=== PATIENT | male | born 1960 | race Caucasian/White ===

== ENCOUNTER 2019-01-19 18:03 | Emergency (ER) | payer MEDICAID ==
[~2019-01-19] VITALS: Ht 188 cm; Wt 96.0 kg
[2019-01-19 18:20] VITALS: BP 132/76
== END 2019-01-19 21:21 | disposition home or self-care (01) ==
LOC: ER 18:04
DX: R04.0 Epistaxis (principal); Z88.8 Allergy status to other drugs, medicaments and biological substances
CPT/HCPCS: 99281

== ENCOUNTER 2020-10-01 15:41 | Emergency (ER) | payer MEDICARE, MEDICAID ==
[~2020-10-01] VITALS: Ht 188 cm; Wt 89.5 kg
[~2020-10-01 15:41] MED LIST: AMA100C PO; ARIP30TA7 PO; DIVA500T9 PO; QUET300T2 PO
[2020-10-01 16:40] VITALS: BP 153/83
[2020-10-01] MEDS ORDERED: METF-438 PO (17:33)
[2020-10-01] MEDS ORDERED: LUMA42CA PO (17:33)
[2020-10-01] MEDS ORDERED: CARI4.5C PO (17:33)
[2020-10-01] MEDS ORDERED: LEVO88TA7 PO (17:33)
[2020-10-01 17:40] LABS: BASOPHILS % (AUTO) 0.4 % (0-1); EOSINOPHILS # (AUTO) 0.1 X10'3 (0-0.9); EOSINOPHILS % (AUTO) 0.9 % (0-6); HEMATOCRIT 38.9 % (42.0-52.0); HEMOGLOBIN 12.8 g/dl (14.0-17.9); LYMPHOCYTES # (AUTO) 0.7 X10'3 (1.1-4.8); LYMPHOCYTES % (AUTO) 10.8 % (21-51); MEAN CORPUSCULAR HEMOGLOBIN 28.8 PG (27.0-31.0); MEAN CORPUSCULAR VOLUME 87.2 FL (78-98); MEAN PLATELET VOLUME 8.2 FL (7.4-10.4); MONOCYTES # (AUTO) 0.6 X10'3 (0-0.9); MONOCYTES % (AUTO) 8.9 % (2-12); NEUTROPHILS # (AUTO) 5.1 X10'3 (1.8-7.7); PLATELET COUNT 220 X10'3 (140-440); RED BLOOD COUNT 4.46 X10'6 (4.70-6.10); RED CELL DISTRIBUTION WIDTH 14.7 % (11.5-14.5); WHITE BLOOD COUNT 6.5 X10'3 (4.5-11.0)
[2020-10-01 17:53] LABS: ALANINE AMINOTRANSFERASE 20 U/L (12-78); ALBUMIN 3.4 G/DL (3.4-5.0); ALBUMIN/GLOBULIN RATIO 0.9 (1.1-1.5); ALKALINE PHOSPHATASE 87 IU/L (46-116); ANION GAP 8 (8-16); ASPARTATE AMINO TRANSFERASE 17 U/L (10-37); BILIRUBIN,TOTAL 0.4 MG/DL (0.1-1.0); BLOOD UREA NITROGEN 16 MG/DL (7-18); BUN/CREATININE RATIO 13.4 (5.4-32.0); CHLORIDE 108 MMOL/L (99-107); CREATININE 1.19 MG/DL (0.60-1.10); GLUCOSE 111 MG/DL (70-104); POTASSIUM 4.1 MMOL/L (3.5-5.1); SODIUM 143 MMOL/L (135-145); TOTAL CARBON DIOXIDE 27.1 MMOL/L (24-32); TOTAL PROTEIN 7.1 G/DL (6.4-8.2); eGFR 63 ML/MIN
[2020-10-01 18:05] LABS: ETHANOL < 0.010 GM/DL (0.0-0.010)
[2020-10-01 18:55] LABS: CLARITY,URINE CLEAR (Clear); COLOR,URINE YELLOW (Yellow); GLUCOSE, URINE NEGATIVE (Neg); KETONES,URINE NEGATIVE (Neg); LEUKOCYTE ESTERASE ,URINE NEGATIVE (Neg); NITRITES, URINE NEGATIVE (Neg); OCCULT BLOOD,URINE NEGATIVE (Neg); PROTEIN,URINE NEGATIVE (Neg); UROBILINOGEN,URINE 0.2 E.U/dL (0.2-1.0)
[2020-10-01 18:56] LABS: UA COLLECTION TYPE CLN CATCH MIDSTREAM; URINE AMPHETAMINE SCREEN NEGATIVE (Neg); URINE BARBITUATE SCREEN NEGATIVE (Neg); URINE BENZODIAZEPINES SCREEN NEGATIVE (Neg); URINE CANNABINOID SCREEN NEGATIVE (Neg); URINE COCAINE SCREEN NEGATIVE (Neg); URINE METHADONE SCREEN NEGATIVE (Neg); URINE OPIATE SCREEN NEGATIVE (Neg); URINE PHENCYCLIDINE SCREEN NEGATIVE (Neg)
[2020-10-01] MEDS: LORazepam 1 MG tablet PO PRN (19:33)
--- NOTE | 2020-10-01 19:38 | NUR ---
Pt brought back to room. Pt stated, "I wish I had a sexy outfits for these ladies back here". Pt redirected.
--- NOTE | 2020-10-01 20:00 | NUR ---
Pt removed his clothing. Security called to help redirect and new orders obtained.
[2020-10-01] MEDS ORDERED: LORazepam 2 mg/ml vial IM ONE (20:20)
[2020-10-01] MEDS ORDERED: haloperidol lactate 5mg/ml inj IM ONE (20:20)
[2020-10-01] MEDS ORDERED: diphenhydrAMINE 50 mg/ml inj IM ONE (20:20)
--- NOTE | 2020-10-01 20:30 | NUR ---
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 I'm being honest". Pt redirected.
--- NOTE | 2020-10-01 20:35 | NUR ---
Pt stated not to put b52 in his hip because he was aroused. B52 given in deltoids.
--- NOTE | 2020-10-01 20:55 | NUR ---
Pt resting quietly, respirations normal, no s/s of distress.
--- NOTE | 2020-10-01 22:00 | NUR ---
Pt resting quietly, respirations normal, no s/s of distress.
--- NOTE | 2020-10-01 23:45 | NUR ---
Pt resting quietly, respirations normal, no s/s of distress.
--- NOTE | 2020-10-02 01:26 | NUR ---
Pt resting quietly, respirations normal, no s/s of distress.
--- NOTE | 2020-10-02 02:35 | NUR ---
Pt awake and up to use restroom. On way back to bed, pt enter areas of two female patients. Pt redirected back to bed.
[2020-10-02] MEDS ORDERED: haloperidol lactate 5mg/ml inj IM ONE (02:50)
--- NOTE | 2020-10-02 02:50 | NUR ---
Pt requested assistance with bed covers. Due to pt's previous behavior, security called for assistance.
--- NOTE | 2020-10-02 02:50 | NUR ---
Pt argumentative with security, requesting to be "pepper-sprayed". Pt posturing up in bed, non-directable. Pt demanding to "walk around the hospital". New orders obtained.
[2020-10-02] MEDS: LORazepam 1 MG tablet PO PRN ×2 (02:55→08:21)
--- NOTE | 2020-10-02 04:09 | NUR ---
Pt resting quietly, respirations normal, no s/s of distress.
[2020-10-02] MEDS ORDERED: METFORMIN HCL 1000 MG PO SCH ×2 (07:30→08:21)
[2020-10-02] MEDS ORDERED: Lumateperone Tosylate (Caplyta) 42MG CAP PO SCH (08:00)
[2020-10-02] MEDS ORDERED: CARIPRAZINE 1.5 MG CAPSULE PO SCH (08:00)
--- NOTE | 2020-10-02 08:10 | NUR ---
PT STOOD UP PANICKING STATES, I HAVE TO PEE, I HAVE TO PEE. PT WAS DIRECTED TO BR, VOIDED X1.
--- NOTE | 2020-10-02 08:35 | NUR ---
PT TALKATIVE, AND CONTINUES TO ASK FOR A RADIO THAT SOMEONE HAD PROMISED HIM IF HE WERE TO STAY QUIET. LOOKING FOR A RADIO FOR HIM. PT REQUESTED ATIVAN TO KEEP HIM CALM. ATIVAN 1 MG GIVEN PO
--- NOTE | 2020-10-02 09:01 | NUR ---
breakfast was served before metformin due. metformin not given.
--- NOTE | 2020-10-02 09:02 | NUR ---
PT CONTINUES TO ASK FOR STREET CLOTHES. PT ALSO ASKING TO CALL HIS CAREGIVER. PHONE PROVIDED. RADIO COULD NOT BE LOCATED. T.Cierra PROVIDED ANDPT
--- NOTE | 2020-10-02 09:58 | NUR ---
EDGAR FROM [place] OFFICE CALLED, PT IS ACCEPTED TO [facility] AND WILL BE GOING UP SOMETIME THIS AM.
--- NOTE | 2020-10-02 14:14 | NUR ---
PT TALKING CONSTANTLY AND HYPER. INFORMED DR. BLANCAS. PLEASE SEE NEW ORDERS.
[2020-10-02] MEDS ORDERED: MIDAZolam 1mg/ml 10ml vial IM ONE (14:15)
[2020-10-02] MEDS ORDERED: MIDAZolam 5mg/ml 2ml vial IM ONE (14:20)
== END 2020-10-02 15:08 ==
LOC: ER 15:42
DX: F22 Delusional disorders (principal); F20.9 Schizophrenia, unspecified; Z20.828 Contact with and (suspected) exposure to other viral communicable diseases; Z60.2 Problems related to living alone; Z88.8 Allergy status to other drugs, medicaments and biological substances; Z79.899 Other long term (current) drug therapy
CPT/HCPCS: 96372; 99285; J1200; J1630; J2060; 36415; 80053; 80305; 80320; 81003; 84443; 85025; 87635; C9803

== ENCOUNTER 2022-03-02 21:35 | Inpatient (IN) | payer MEDICARE, MEDICAID ==
[~2022-03-02] VITALS: Ht 188 cm; Wt 102.0 kg
[~2022-03-02 21:35] MED LIST changes: -AMA100C PO; -ARIP30TA7 PO; +BENZ2TAB70 PO; -DIVA500T9 PO; +DOCU-340 PO; +LEVO100C4 PO; +METF-438 PO; +OLAN20TA3 PO; +PANT40TA54 PO; -QUET300T2 PO
[2022-03-03] MEDS ORDERED: magnesium hydroxide 30ml (MOM) UD suspension PO PRN (13:10)
[2022-03-03] MEDS ORDERED: mag hydrox/Alum hydrox/simeth 30ml oral suspension PO PRN (13:10)
[2022-03-03] MEDS ORDERED: magnesium Cl slow-release 64mg tablet PO PRN (13:10)
[2022-03-03] MEDS ORDERED: POTASSIUM BICARB 20meq eff tab 20 MEQ TABLET.EFF PO PRN ×2 (13:10)
[2022-03-03] MEDS ORDERED: loperamide 2mg capsule PO PRN (13:10)
[2022-03-03] MEDS ORDERED: acetaminophen 325mg tablet PO PRN ×2 (13:10)
[2022-03-03 13:49] VITALS: BP 147/72
[2022-03-03] MEDS ORDERED: iohexol 300mg/ml 100ml inj. ONE (16:38)
[2022-03-03] MEDS ORDERED: metFORMIN 500mg tablet PO SCH (17:00)
--- NOTE | 2022-03-03 17:11 | NUR ---
Admit note: Pt admitted on 03/02/22 from PCU on a 5150 for [place] disabled. Pt is unable to formulate plan for food, clothing, intermediate, despite intensive outpatient mental health services and support. Pt has history of Schizoaffective disorder.
--- NOTE | 2022-03-03 18:00 | NUR ---
Nursing Progress Note Legal hold: 5150 Client on involuntary status for GD Report received from RN with use of SBAR Why are they here: Pt admitted on 03/02/22 from PCU on a 5150 for [place] disabled. Pt is unable to formulate plan for food, clothing, detention, despite intensive outpatient mental health services and support. Pt has history of Schizoaffective disorder. Assessment What has happened this shift: Received Pt in bed sleeping w/o distress at shift change. Pt woke and was cooperative with vitals. Pt incontinent of urine and Pt and bed changed. Pt is confused and unsteady on his feet. He needs much prompting for all tasks. Pt up to wheel chair and ate breakfast in community room. Pt incontinent of urine throughout day. Hospitalists paged throughout the day by charge nurse. When they responded and info shared, ordered CT of abdomen and chest which was completed in late afternoon. Pt napped on/off for most of the day. Pts breathing is labored at times and speech is mumbled. Metformin DCd due to contrast media. Pts BS in AM was 186, befor dinner was 208. Pt was readmitted and new admission completed. S/I, H/I: Pt denies A/VH: Pt denies Sleep: Pt napped on/off all day ADL's; With assistance Group attendance: Yes/ end of AM group Were meds taken: Yes Any med S/E: None noted Mental Status Exam Appearance: In unit scrubs Eye contact: Good Behavior: Lethargic/confused Speech: Mostly mumbling and inaudible with moments of clear sentences Mood: Anxious Affect: tired, sedated Thought process: Confused Thought Content: Delusional statements Cognition: A/O X 3 Insight: Poor Judgment: Poor Interventions PRN's used: None Therapeutic interventions: 1:1 assessment, therapeutic conversation, active listening, medication administration/education/monitoring, fall prevention, encouragement of autonomy in ADLs, assistance with transfers, ambulation, toileting, incontinent care, and showers. Encouragement to attend groups, reality orientation and positive reinforcement. Restraints/seclusion/emergency medication: None Justification of Continued Inpatient Treatment: Pt continues to require a safe and therapeutic environment with medication management and monitoring.
--- NOTE | 2022-03-03 18:31 | NUR ---
TRANSFER TO TELE: Spoke with Dr. Jara regarding client status at 18:35. ordered client to be transferred to U. Notified KATHIE Blanchard to assign bed. PHIL Gerardo aware of transfer. Client to be transferred on [facility] with all belongings. Client informed of transfer. Addendum: 03/03/22 at 5599 by Randee Thrasher RN Client assigned to [id number]. Client is a LOS. NA to stay with client for duration of shift.
[2022-03-03] MEDS ORDERED: docusate sod 100mg capsule PO SCH (20:00)
[2022-03-03] MEDS ORDERED: OLANZapine 2.5MG tablet PO SCH (21:00)
[2022-03-04] MEDS ORDERED: levoTHYROXINE 100mcg tablet PO SCH (07:00)
[2022-03-04] MEDS ORDERED: pantoprazole 40mg Tablet.DR PO SCH (07:30)
[2022-03-04] MEDS ORDERED: MESSAGE TO PHARMACY PO SCH (10:00)
== END 2022-03-03 23:32 | disposition short-term general hospital (02) | DRG 885 ==
LOC: ADULT MH 21:35 → UNDODISIN 03-03 13:19
PROVIDERS: ADMIT Psychiatry & Neurology Psychiatry; ATTEND Psychiatry & Neurology Psychiatry
PROC: BW251ZZ Computerized Tomography (CT Scan) of Chest, Abdomen and Pelvis using Low Osmolar Contrast (ICD-10-PCS; principal; 2022-03-03)
DX: F25.9 Schizoaffective disorder, unspecified (principal); I26.99 Other pulmonary embolism without acute cor pulmonale; D64.9 Anemia, unspecified; E11.9 Type 2 diabetes mellitus without complications; K21.9 Gastro-esophageal reflux disease without esophagitis; R11.10 Vomiting, unspecified; Z79.84 Long term (current) use of oral hypoglycemic drugs; Z56.0 Unemployment, unspecified
CPT/HCPCS: 36415; 71260; 74177; 80178; 82948; Q9967

== ENCOUNTER 2023-03-07 11:22 | Emergency (ER) | payer MEDICARE, MEDICAID ==
[~2023-03-07] VITALS: Ht 188 cm; Wt 90.0 kg
[~2023-03-07 11:22] MED LIST changes: +APIX5TAB3 PO; +BENZ1TAB78 PO; -BENZ2TAB70 PO; -DOCU-340 PO; +DOCU100C40 PO; +FLO0.4C PO; -LEVO100C4 PO; +LEVO100T9 PO; +OLAN10TA73 PO; -OLAN20TA3 PO; +PANT-47 PO; -PANT40TA54 PO; +POTA-207 PO
[2023-03-07 11:55] LABS: BASOPHILS % (AUTO) 0.4 % (0-1); EOSINOPHILS # (AUTO) 0.1 X10'3 (0-0.9); EOSINOPHILS % (AUTO) 0.8 % (0-6); LYMPHOCYTES # (AUTO) 0.4 X10'3 (1.1-4.8); LYMPHOCYTES % (AUTO) 4.5 % (21-51); MEAN CORPUSCULAR HGB CONC 29.9 g/dL (33.0-36.5); MEAN PLATELET VOLUME 7.8 FL (7.4-10.4); MONOCYTES # (AUTO) 0.8 X10'3 (0-0.9); MONOCYTES % (AUTO) 7.6 % (2-12); NEUTROPHILS # (AUTO) 8.6 X10'3 (1.8-7.7); NEUTROPHILS % (AUTO) 86.7 % (42-75); PLATELET COUNT 299 X10'3 (140-440)
[2023-03-07 12:08] LABS: ALANINE AMINOTRANSFERASE 15 U/L (12-78); ALBUMIN 3.1 G/DL (3.4-5.0); ALBUMIN/GLOBULIN RATIO 0.8 (1.1-1.5); ALKALINE PHOSPHATASE 132 IU/L (46-116); ANION GAP 14 (8-16); ASPARTATE AMINO TRANSFERASE 11 U/L (10-37); BILIRUBIN,TOTAL 0.1 MG/DL (0.1-1.0); BLOOD UREA NITROGEN 18 MG/DL (7-18); BUN/CREATININE RATIO 8.9 (10.0-20.0); CALCIUM 8.9 MG/DL (8.5-10.1); CHLORIDE 107 MMOL/L (99-107); CREATININE 2.02 MG/DL (0.60-1.10); GLUCOSE 193 MG/DL (70-104); POTASSIUM 4.3 MMOL/L (3.5-5.1); SODIUM 143 MMOL/L (135-145); TOTAL PROTEIN 7.1 G/DL (6.4-8.2); eGFR 34 ML/MIN
[2023-03-07 12:22] LABS: HEMATOCRIT 28.2 % (42.0-52.0); HEMOGLOBIN 8.4 g/dl (14.0-17.9); MEAN CORPUSCULAR HEMOGLOBIN 20.9 PG (27.0-31.0); MEAN CORPUSCULAR VOLUME 69.9 FL (78-98); RED BLOOD COUNT 4.03 X10'6 (4.70-6.10); RED CELL DISTRIBUTION WIDTH 18.6 % (11.5-14.5)
[2023-03-07] MEDS ORDERED: normal saline 1000ML IV soln IVB ONE (12:35)
[2023-03-07 12:57] LABS: ANISOCYTOSIS 2+; MICROCYTOSIS 1+; PLATELET ESTIMATE NORMAL
[2023-03-07 12:58] LABS: BURR CELLS FEW; ELLIPTOCYTES 2+; HYPOCHROMASIA 1+; POLYCHROMASIA FEW; SCHISTOCYTES FEW
[2023-03-07] MEDS ORDERED: LIDOcaine 2% 10ml TOPICAL JELLY (Urojet) MM STA (13:50)
[2023-03-07] MEDS ORDERED: LidoCAINE 2% Topical Jelly 11mL syringe MM STA (13:52)
--- NOTE | 2023-03-07 14:09 | NUR ---
PATIENT TO CT,
--- NOTE | 2023-03-07 14:26 | NUR ---
patient back in the room.
[2023-03-07 15:29] VITALS: BP 145/89
== END 2023-03-07 15:31 | disposition home or self-care (01) ==
LOC: ER 11:22
DX: E86.0 Dehydration (principal); R19.7 Diarrhea, unspecified; F25.0 Schizoaffective disorder, bipolar type; E03.9 Hypothyroidism, unspecified; E11.9 Type 2 diabetes mellitus without complications; Z88.8 Allergy status to other drugs, medicaments and biological substances; Z79.899 Other long term (current) drug therapy
CPT/HCPCS: 36415; 71045; 74176; 80053; 83880; 84484; 85008; 85025; 93005; 96360; 99285; J7030

== ENCOUNTER 2023-10-24 13:10 | Emergency (ER) | payer MEDICARE, MEDICAID ==
[~2023-10-24] VITALS: Ht 185.4 cm; Wt 100.7 kg
[2023-10-24 15:25] VITALS: BP 119/76; PULSE 126; RESP 12; TEMP 97.7; O2SAT 98
[2023-10-24 15:35] LABS: BASOPHILS # (AUTO) 0.1 X10'3 (0-0.2); EOSINOPHILS # (AUTO) 0.2 X10'3 (0-0.9); EOSINOPHILS % (AUTO) 1.7 % (0-6); HEMOGLOBIN 8.9 g/dl (14.0-17.9); LYMPHOCYTES # (AUTO) 0.9 X10'3 (1.1-4.8); MEAN PLATELET VOLUME 7.5 FL (7.4-10.4); MONOCYTES # (AUTO) 0.9 X10'3 (0-0.9); WHITE BLOOD COUNT 11.2 X10'3 (4.5-11.0)
[2023-10-24 15:39] LABS: BASOPHILS % (AUTO) 0.8 % (0-1); HEMATOCRIT 29.7 % (42.0-52.0); LYMPHOCYTES % (AUTO) 8.5 % (21-51); MEAN CORPUSCULAR HEMOGLOBIN 22.2 PG (27.0-31.0); MEAN CORPUSCULAR HGB CONC 30.1 g/dL (33.0-36.5); MEAN CORPUSCULAR VOLUME 73.7 FL (78-98); MONOCYTES % (AUTO) 8.4 % (2-12); NEUTROPHILS % (AUTO) 80.6 % (42-75); PLATELET COUNT 365 X10'3 (140-440); RED BLOOD COUNT 4.03 X10'6 (4.70-6.10); RED CELL DISTRIBUTION WIDTH 17.1 % (11.5-14.5)
[2023-10-24 15:46] LABS: ALANINE AMINOTRANSFERASE 20 U/L (12-78); ALBUMIN 3.2 G/DL (3.4-5.0); ALBUMIN/GLOBULIN RATIO 0.7 (1.1-1.5); ALKALINE PHOSPHATASE 126 IU/L (46-116); ANION GAP 12 (8-16); ASPARTATE AMINO TRANSFERASE 13 U/L (10-37); BILIRUBIN,TOTAL 0.1 MG/DL (0.1-1.0); BLOOD UREA NITROGEN 32 MG/DL (7-18); BUN/CREATININE RATIO 25.6 (10.0-20.0); CHLORIDE 103 MMOL/L (99-107); CREATININE 1.25 MG/DL (0.60-1.10); GLUCOSE 273 MG/DL (70-104); POTASSIUM 4.4 MMOL/L (3.5-5.1); SODIUM 136 MMOL/L (135-145); TOTAL PROTEIN 7.8 G/DL (6.4-8.2); eCRCL 70 ML/MIN; eGFR 59 ML/MIN
[2023-10-24] MEDS ORDERED: insulin regular, human 10 units/0.1 ml syringe SQ ONE (17:25)
== END 2023-10-24 18:29 | disposition home or self-care (01) ==
LOC: ER 13:10
DX: E11.65 Type 2 diabetes mellitus with hyperglycemia (principal); R53.1 Weakness; R62.50 Unspecified lack of expected normal physiological development in childhood; Z88.8 Allergy status to other drugs, medicaments and biological substances; Z79.899 Other long term (current) drug therapy
CPT/HCPCS: 36415; 80053; 82948; 85025; 99283; J1815